=== PATIENT | male | born 1965 | race Caucasian/White ===

== ENCOUNTER 2019-08-23 16:24 | Outpatient (REF) | payer SELFPAY ==
[2019-08-25 17:45] LABS: COVID-19 RT-PCR UVMMC Result Negative (Negative)
== END 2019-08-23 16:44 ==
LOC: NCHCN 16:24
PROVIDERS: Visit Provider Nurse Practitioner Family
DX: J06.9 Acute upper respiratory infection, unspecified (principal); Z03.818 Encounter for observation for suspected exposure to other biological agents ruled out
CPT/HCPCS: U0003

== ENCOUNTER 2023-02-07 12:19 | Outpatient (REF) | payer BC, SELFPAY ==
[2023-02-07 15:34] LABS: Anion Gap 10.1 mmol/L (3-11); BUN 13 mg/dL (7-18); CO2 24.9 mmol/L (21.0-32.0); CREATININE 0.9 mg/dL (0.70-1.30); Calculated LDL 142 mg/dL (<100); Chloride 102 mmol/L (98-107); Cholesterol 213 mg/dL (<200); Estimated GFR 100.24 (mL/min/1.73m2); Glucose 113 mg/dL (74-106); HDL Cholesterol 51 mg/dL (40-60); Potassium 4.3 mmol/L (3.5-5.1); Sodium 137 mmol/L (136-145); Triglyceride 100 mg/dL (<150)
[2023-02-07 23:10] LABS: PSA, Screening 0.9 ng/mL (<=3.5)
== END 2023-02-07 12:20 | disposition home or self-care (01) ==
LOC: NCHCN 12:19
PROVIDERS: Visit Provider Physician Assistant
DX: Z00.00 Encounter for general adult medical examination without abnormal findings (principal); I10 Essential (primary) hypertension; Z12.5 Encounter for screening for malignant neoplasm of prostate
CPT/HCPCS: 80048; 80061; 84153

== ENCOUNTER 2024-01-21 09:13 | Outpatient (REF) | payer BC, SELFPAY ==
[2024-01-21 17:48] LABS: Bacteria Negative HPF (Negative); C & S Indicated? C&S Done As Ordered; Epithelial Cells Rare HPF (Negative); RBC Negative HPF (0-2); WBC Negative HPF (0-5)
[2024-01-23 09:42] LABS: PSA, Diagnostic 1.1 ng/mL (<=3.5)
== END 2024-01-21 09:14 ==
LOC: LBN 09:13
PROVIDERS: PCP Physician Assistant; Visit Provider Physician Assistant Medical
DX: R35.0 Frequency of micturition (principal)
CPT/HCPCS: 81015; 84153; 87086

== ENCOUNTER 2024-04-20 09:53 | Outpatient (REF) | payer BC, SELFPAY ==
[2024-04-20 15:21] LABS: Hemoglobin A1C 5.7 % (<5.7)
[2024-04-20 15:34] LABS: ALT 62 U/L (16-63); AST 23 U/L (15-37); Albumin 4.5 g/dL (3.4-5.0); Alkaline Phosphatase 83 U/L (46-116); Anion Gap 11.3 mmol/L (3-11); BUN 21 mg/dL (7-18); Bilirubin, Total 0.22 mg/dL (0.2-1.0); CO2 27.7 mmol/L (21.0-32.0); Calcium 8.9 mg/dL (8.5-10.1); Calculated LDL 125 mg/dL (<100); Chloride 104 mmol/L (98-107); Cholesterol 194 mg/dL (<200); Estimated GFR 87.78 (mL/min/1.73m2); Glucose 104 mg/dL (74-106); HDL Cholesterol 49 mg/dL (40-60); Potassium 4.2 mmol/L (3.5-5.1); Sodium 143 mmol/L (136-145); Total Protein 7.5 g/dL (6.4-8.2); Triglyceride 100 mg/dL (<150)
== END 2024-04-20 09:54 | disposition home or self-care (01) ==
LOC: NCHCN 09:53
PROVIDERS: PCP Physician Assistant; Visit Provider Physician Assistant
DX: I10 Essential (primary) hypertension (principal); Z13.1 Encounter for screening for diabetes mellitus
CPT/HCPCS: 80053; 80061; 83036